=== PATIENT | male | born 1985 | race Caucasian/White ===

== ENCOUNTER 2016-12-05 10:53 | Emergency (ER) | payer OTHER ==
[~2016-12-05] VITALS: Ht 175.3 cm; Wt 79.3 kg
[2016-12-05 10:59] VITALS: BP 130/63; PULSE 79; RESP 16; TEMP 98.6; O2SAT 95
--- NOTE | 2016-12-05 11:35 | PD ---
HPI . Upper respiratory symptoms Chief Complaint: Cold / Flu Symptoms Time Seen by Provider: 11:02 Travel History International Travel<30 days: No Contact w/Intl Traveler<30days: No Traveled to known affect area: No History of Present Illness HPI 31-year-old male patient presents emergency department for evaluation of nasal congestion, fever and cough times 1.5 weeks. Patient states he had a fever yesterday. The fever is responsive to antipyretic medication. The cough is persistent enough to keep him up at night. Patient states the cough is productive. He is coughing up thick green phlegm. Patient is currently a smoker but he says he is significantly decreased the amount of cigarettes he smokes daily due to this illness. Patient denies any abdominal pain, nausea vomiting, diarrhea, lightheadedness, sore throat, ear pain. PFSH Past Medical History Tetanus Vaccination: < 5 Years Past Surgical History Abdominal Surgery: Yes (as child) Social History Alcohol Use: Yes (occ) Tobacco Use: Yes (1ppd) Allergies-Medications (Allergen,Severity, Reaction): Coded Allergies: No Known Allergies (Verified Allergy, Unknown, 12/05/16) Reported Meds & Prescriptions Reported Meds & Active Scripts Active Coditussin AC Liq (Guaifenesin-Codeine Liq) 200-10 Mg/5ML Liqd 5 Ml PO Q4H PRN Proair Hfa 8.5 GM Inh (Albuterol Sulfate) 90 Mcg/Act Aer 2 Puff INH Q4-6H PRN 108 mcg/actuation Tessalon Perles (Benzonatate) 100 Mg Cap 100 Mg PO TID PRN 10 Days Azithromycin 250 Mg Tab 250 Mg PO DAILY 5 Days Review of Systems Except as stated in HPI: all other systems reviewed are Neg Physical Exam Narrative GENERAL: Well-nourished, well-developed 31-year-old male patient in no acute respiratory distress however persistent cough noted during physical exam. Nontoxic appearing. SKIN: Focused skin assessment warm/dry. HEAD: Normocephalic. Atraumatic. EYES: No scleral icterus. No injection or drainage. THROAT: No pharyngeal injection, exudates, or tonsillar hypertrophy. Airway is patent. EARS: Bilateral pinnae and external canals appear within normal limits. Bilateral tympanic membranes without erythema, dullness or perforation. NECK: Supple, trachea midline. No JVD or lymphadenopathy. CARDIOVASCULAR: Regular rate and rhythm without murmurs, gallops, or rubs. RESPIRATORY: Rhonchi and crackles noted in bilateral lower lobes. Wheezing with exhalation noted throughout. Persistent cough while attempting to take breaths. No accessory muscle use. GASTROINTESTINAL: Abdomen soft, non-tender, nondistended. MUSCULOSKELETAL: No cyanosis, or edema. Data Data Last Documented VS Vital Signs Date Time Temp Pulse Resp B/P (MAP) Pulse Ox O2 Delivery O2 Flow Rate FiO2 12/05/16 10:59 98.6 79 16 130/63 (85) 95 Orders Orders Chest, Pa & Lat (12/05/16 11:13) MDM Medical Decision Making Medical Screen Exam Complete: Yes Emergency Medical Condition: Yes Differential Diagnosis Differential diagnoses include but not limited to URI, pneumonia, bronchitis Narrative Course 31-year-old male patient presents emergency department for evaluation of nasal congestion, cough and fever 1.5 weeks. The patient reports the fever resolved days ago but the cough is persistent. The patient is afebrile in triage. The patient states cough is productive and he is coughing up thick green phlegm. There is rhonchi and crackles noted throughout bilateral lower lobes and wheezing with exhalation noted throughout bilateral lungs. Chest x-ray ordered and pending. Chest x-ray shows probable pneumonia. He will be treated with Levaquin per Dr. Barraza's recommendation, given an albuterol inhaler, Tessalon Perles and codeine cough syrup for nighttime use. Patient instructed to stop smoking, follow-up with his primary care and return promptly to the emergency Department with any worsening condition. Diagnosis Primary Impression: Community acquired pneumonia Qualified Codes: J18.9 - Pneumonia, unspecified organism Referrals: Primary Care Physician Patient Instructions: Community Acquired Pneumonia (ED), General Instructions Additional Instructions: Please return to emergency department if your symptoms return or worsen. Follow up with your primary care provider. Take medications as prescribed. Codeine cough syrup for nighttime use. It will make you drowsy. Ibuprofen or Tylenol as needed for fever. Quit smoking. Med/Other Pt SpecificInfo: Prescription(s) given Scripts Levofloxacin (Levaquin) 750 Mg Tablet 750 MG PO DAILY for Infection for 10 Days, #10 TAB 0 Refills Prov: Paulina Timmons 10/28/17 Guaifenesin-Codeine Liq (Coditussin AC Liq) 200-10 Mg/5ML Liqd 5 ML PO Q4H Y, #120 ML 0 Refills Prov: Everett Barraza MD 12/05/16 Albuterol 8.5 GM Inh (Proair Hfa 8.5 GM Inh) 90 Mcg/Act Aer 2 PUFF INH Q4-6H Y for SOB/WHEEZING, #1 INHALER 0 Refills 108 mcg/actuation Prov: Paulina Timmons 12/05/16 Benzonatate (Tessalon Perles) 100 Mg Cap 100 MG PO TID Y for COUGH for 10 Days, CAP 0 Refills Prov: Paulina Timmons 12/05/16 Disposition: 01 DISCHARGE HOME Condition: Stable Paulina Timmons Dec 05, 2016 11:35
--- NOTE | 2016-12-05 12:08 | RADRPT ---
EXAM DATE/TIME: 12/05/2016 11:48 [facility] COMPARISON: No previous studies available for comparison. INDICATIONS : Cough, short of breath, fever, chest pain with cough MEDICAL HISTORY : None. SURGICAL HISTORY : Abdomen surgery ENCOUNTER: Initial ACUITY: 1 week PAIN SCORE: 7/10 LOCATION: Bilateral chest FINDINGS: Bibasilar patchiness is noted consistent with probable pneumonia. Clinical correlation is recommende d. The heart is normal. The pulmonary vascular pattern is normal. CONCLUSION: 1. Bibasilar patchiness consistent with probable pneumonia. Clinical correlation is recommended. Crow Gonsalves MD on December 05, 2016 at 12:04 Board Certified Radiologist. This report was verified electronically.
[2016-12-05] MEDS ORDERED: ALBUAER3 INH (12:45)
[2016-12-05] MEDS ORDERED: AZIT250T3 PO (12:45)
[2016-12-05] MEDS ORDERED: BENZ100 PO (12:45)
[2016-12-05] MEDS ORDERED: GUAI1LIQ13 PO (12:48)
[2016-12-05] MEDS ORDERED: LEVA750T9 PO (12:51)
[2016-12-05] MEDS ORDERED: LEVOFLOXACIN 750 MG TAB PO ONE (13:00)
== END 2016-12-05 13:28 | disposition home or self-care (01) ==
LOC: PHEFT 10:53
DX: J18.9 Pneumonia, unspecified organism (principal); F17.200 Nicotine dependence, unspecified, uncomplicated; Z79.899 Other long term (current) drug therapy
CPT/HCPCS: 71020; 99284